=== PATIENT | female | born 1945 | race Caucasian/White ===

== ENCOUNTER 2018-06-24 21:55 | Inpatient (IN) | payer OTHER ==
[~2018-06-24] VITALS: Ht 162.6 cm; Wt 50.8 kg
[2018-06-24] MEDS ORDERED: SYNTHROID88 MCG PO (21:59)
[2018-06-24] MEDS ORDERED: ATORVASTATIN CA20 MG (21:59)
[2018-06-24] MEDS ORDERED: RESTORIL22.5 MG (22:00)
[2018-06-24] MEDS ORDERED: COZAAR25 MG (22:00)
[2018-06-24] MEDS ORDERED: PAXIL20 MG (22:00)
[2018-06-29] MEDS ORDERED: ELIQUIS2.5 MG PO (17:59)
[2018-06-29] MEDS ORDERED: PERCOCET 5-3251 EACH PO (17:59)
[2018-06-29] MEDS ORDERED: DUI500 PO (17:59)
== END 2018-06-29 19:36 | DRG 470 ==
LOC: ER 21:55 → SURH 06-25 12:29
PROVIDERS: Orthopaedic Surgery
PROC: 0MBM0ZZ Excision of Left Hip Bursa and Ligament, Open Approach (ICD-10-PCS; 2018-06-27)
PROC: 0SRS0JZ Replacement of Left Hip Joint, Femoral Surface with Synthetic Substitute, Open Approach (ICD-10-PCS; principal; 2018-06-27 16:00)
DX: S72.012A Unspecified intracapsular fracture of left femur, initial encounter for closed fracture (principal); F23 Brief psychotic disorder; W18.39XA Other fall on same level, initial encounter; Y93.G3 Activity, cooking and baking; Y92.090 Kitchen in other non-institutional residence as the place of occurrence of the external cause; Y99.8 Other external cause status; M81.0 Age-related osteoporosis without current pathological fracture; M16.12 Unilateral primary osteoarthritis, left hip; I10 Essential (primary) hypertension; E03.8 Other specified hypothyroidism; F31.76 Bipolar disorder, in full remission, most recent episode depressed

== ENCOUNTER 2020-06-12 09:20 | Outpatient (CLI) | payer OTHER ==
[~2020-06-12 09:20] MED LIST: ATORVASTATIN CA20 MG; COZAAR25 MG; DUI500 PO; ELIQUIS2.5 MG PO; PAXIL20 MG; PERCOCET 5-3251 EACH PO; RESTORIL22.5 MG; SYNTHROID88 MCG PO
== END 2020-06-12 09:28 | disposition home or self-care (01) ==
LOC: MAMO-SONO 09:20
PROVIDERS: ATTEND Internal Medicine Cardiovascular Disease
DX: Z12.31 Encounter for screening mammogram for malignant neoplasm of breast (principal); N64.59 Other signs and symptoms in breast

== ENCOUNTER 2020-11-30 15:20 | Inpatient (IN) | payer OTHER ==
[~2020-11-30] VITALS: Ht 121.9 cm; Wt 5.0 kg
[2020-11-30] MEDS ORDERED: CHILDREN'S ASPI81 MG PO (15:31)
[2020-11-30] MEDS ORDERED: PLAVIX75 MG PO (15:32)
[2020-11-30] MEDS ORDERED: TOPROL XL50 M1 PO (15:32)
[2020-11-30] MEDS ORDERED: HYDROCHLOROTHIA25 MG PO (15:32)
[2020-11-30] MEDS ORDERED: DOXAZOSIN MESYLA2 MG PO (15:33)
[2020-11-30] MEDS ORDERED: PROCARDIA XL90 MG PO (15:33)
== END 2020-12-04 19:50 | disposition home or self-care (01) | DRG 866 ==
LOC: ER 15:20 → SEC-K 12-01 06:05 → MEDJ 12-01 06:05
PROVIDERS: ADMIT Internal Medicine Cardiovascular Disease; ATTEND Internal Medicine Cardiovascular Disease
PROC: 8E0ZXY6 Isolation (ICD-10-PCS; principal; 2020-12-01)
DX: J10.89 Influenza due to other identified influenza virus with other manifestations (principal); N39.0 Urinary tract infection, site not specified; E87.1 Hypo-osmolality and hyponatremia; E86.0 Dehydration; B34.9 Viral infection, unspecified; I11.9 Hypertensive heart disease without heart failure; I25.10 Atherosclerotic heart disease of native coronary artery without angina pectoris; E78.5 Hyperlipidemia, unspecified; M32.9 Systemic lupus erythematosus, unspecified; Z86.73 Personal history of transient ischemic attack (TIA), and cerebral infarction without residual deficits; Z20.822 Contact with and (suspected) exposure to COVID-19

== ENCOUNTER 2022-08-04 07:51 | Outpatient (CLI) | payer OTHER ==
[~2022-08-04 07:51] MED LIST changes: +CHILDREN'S ASPI81 MG PO; +DOXAZOSIN MESYLA2 MG PO; +HYDROCHLOROTHIA25 MG PO; +PLAVIX75 MG PO; +PROCARDIA XL90 MG PO; +TOPROL XL50 M1 PO
== END 2022-08-04 07:53 | disposition home or self-care (01) ==
LOC: MRI 07:51
PROVIDERS: ATTEND Psychiatry & Neurology Clinical Neurophysiology
DX: I63.30 Cerebral infarction due to thrombosis of unspecified cerebral artery (principal)
CPT/HCPCS: 70551

== ENCOUNTER 2024-09-11 07:55 | Outpatient (CLI) | payer OTHER | END 2024-09-11 07:58 | disposition home or self-care (01) | LOC: MAMO-SONO 07:55 | PROVIDERS: ATTEND Internal Medicine Cardiovascular Disease | DX: N60.11 Diffuse cystic mastopathy of right breast (principal); N60.12 Diffuse cystic mastopathy of left breast ==

== ENCOUNTER 2025-01-31 09:32 | Outpatient (CLI) | payer OTHER | END 2025-01-31 09:36 | disposition home or self-care (01) | LOC: RAD 09:32 | PROVIDERS: ATTEND Ophthalmology | DX: Z01.811 Encounter for preprocedural respiratory examination (principal) ==

== ENCOUNTER → 2025-01-31 09:56 | Outpatient (CLI) | payer OTHER | END | disposition home or self-care (01) | LOC: EKG 09:56 | PROVIDERS: ATTEND Ophthalmology | DX: I10 Essential (primary) hypertension (principal) ==

== ENCOUNTER 2025-07-04 09:29 | Inpatient (IN) | payer OTHER ==
[~2025-07-04] VITALS: Ht 162.6 cm; Wt 56.2 kg
[2025-07-04] MEDS ORDERED: [UNRECOGNIZED DRUG - OTHER] (09:39)
[2025-07-04] MEDS ORDERED: TENORMIN25 MG PO (09:39)
[2025-07-04] MEDS ORDERED: ATORVASTATIN CA10 MG PO (09:40)
--- NOTE | 2025-07-04 09:42 | NUR ---
PTE ALERTA Y ORIENTADA X3 REFIERE VENIR POR PROBLEMAS URINARIOS Y REFERIDOS DE DR. SWEENEY. SE KARI S/V Y SE UBICA EN OFICINA MEDICA.
[2025-07-04] MEDS ORDERED: 0.9 % SODIUM CHLORIDE 1,000 ML IV STA (09:59)
[2025-07-04] MEDS ORDERED: ONDANSETRON HCL 2 MG/ML VIAL IV STA (09:59)
[2025-07-04] MEDS ORDERED: FAMOTIDINE/PF 20 MG/2 ML VIAL IV STA (09:59)
[2025-07-04] MEDS ORDERED: levoFLOXacin IN DEXTROSE 5 % 5 MG/ML PIGGYBAG IV SCH (10:00)
[2025-07-04] MEDS ORDERED: KETOROLAC TROMETHAMINE 15 MG VIAL IU ONE (10:00)
[2025-07-04] MEDS ORDERED: ONDANSETRON HCL 2 MG/ML VIAL ONE (10:22)
[2025-07-04] MEDS ORDERED: KETOROLAC TROMETHAMINE 30 MG VIAL ONE (10:22)
[2025-07-04] MEDS ORDERED: FAMOTIDINE/PF 20 MG/2 ML VIAL ONE (10:23)
[2025-07-04 11:14] LABS: BASO % 0.4 % (0.1-1.2); EOS # 0.07 (0.04-0.54); EOS % 0.5 % (0.7-7.0); LYMPH # 0.85 (1.18-3.74); LYMPH % 6.1 % (19.3-53.1); MEAN PLATELET VOLUME 8.80 fl (9.4-12.4); MONO # 0.55 (0.24-0.82); MONO % 4.0 % (4.7-12.5); NEUT # 12.29 (1.56-6.13); NEUT % 88.4 % (34.0-71.1); RED CELL DISTRIBUTION WIDTH 12.5 % (11.6-14.4)
[2025-07-04 11:20] LABS: ERYTHROCYTE SEDIMENTATION RATE 39 mm/hr (0-30)
--- NOTE | 2025-07-04 11:26 | NUR ---
PACIENTE EN DESCANSO EN CAMA SE EDUCA SOBRE TRATAMIENTOS A SEGUIR. LA MISMA SE LE KARI MUESTRAS DE LABORATORIO, SE COMIENZA ACCESO VENOSO Y SE ADMINISTRAN MEDICAMENTO CON DEBIDAS MEDIDAS ASEPTICAS. LA MISMA SE MANTIENE EN DESCANSO EN ESPERA DE RESULTADOS Y RE-EVALUAVION.
[2025-07-04 11:50] LABS: BUN CREA RATIO 11.0 (7.0-25.0); CREATININE SERUM 0.81 mg/dL (0.55-1.02); GFR 68.38; GLUCOSE FASTING 121.0 mg/dL (65-100); INR 0.98; OSMOLALITY SERUM 257.0 MOSM/KG (275-295)
[2025-07-04 11:58] LABS: URINE EPITHELIAL CELLS 21.5 uL (0.0-38.8); URINE RBC 101.0 uL (0.0-20.8); URINE WBC 7.8 uL (0.0-23.2)
[2025-07-04 12:05] LABS: URINE BILIRRUBIN NEGATIVE (NEGATIVE); URINE BLOOD NEGATIVE; URINE KETONE NEGATIVE (NEGATIVE); URINE LEUKOCYTE TRACE; URINE NITRATE POSITIVE; URINE PROTEIN TRACE (NEGATIVE); URINE UROBILINOGEN 1.0 E.U./dl
[2025-07-04 12:08] LABS: URINE BACTERIA > 9821.5 uL (0.0-1933); URINE CAST 0.00 uL (0.0-1.40)
[2025-07-04 12:09] LABS: URINE APPEARANCE CLEAR; URINE COLOR YELLOW; URINE GLUCOSE 100 MG/DL (NEGATIVE)
[2025-07-04] MEDS ORDERED: ACETAMINOPHEN 325 MG TABLET PO PRN (14:45)
[2025-07-04] MEDS ORDERED: PIPERACILLIN/TAZOBACTAM SODIUM 3.375 GM VIAL IV ONE (15:45)
[2025-07-04] MEDS ORDERED: 0.9 % SODIUM CHLORIDE 1,000 ML IV SCH (16:15)
[2025-07-04] MEDS ORDERED: ATORVASTATIN CALCIUM 10 MG TABLET PO SCH (17:00)
[2025-07-04] MEDS ORDERED: PIPERACILLIN/TAZOBACTAM SODIUM 3.375 GM in 0.9 % SODIUM CHLORIDE 100 ML IV SCH (18:00)
[2025-07-04] MEDS ORDERED: ACETAMINOPHEN 500 MG GEL..CAP PO PRN (19:15)
[2025-07-04 20:04] VITALS: BP 150/85; O2SAT 95
[2025-07-04] MEDS ORDERED: GABAPENTIN 300 MG CAPSULE PO SCH (21:00)
[2025-07-04] MEDS ORDERED: TEMAZEPAM 15 MG CAPSULE PO SCH (21:00)
[2025-07-05 03:41] VITALS: BP 142/80; O2SAT 97
[2025-07-05] MEDS ORDERED: LEVOTHYROXINE SODIUM 100 MCG TABLET PO SCH (06:00)
[2025-07-05] MEDS ORDERED: PANTOPRAZOLE SODIUM 40 MG/VIAL VIAL IV SCH (09:00)
[2025-07-05] MEDS ORDERED: NIFEDIPINE 30 MG TAB.SA.OSM PO SCH (09:00)
[2025-07-05] MEDS ORDERED: levoFLOXacin IN DEXTROSE 5 % 5 MG/ML PIGGYBAG IV SCH (09:00)
[2025-07-05] MEDS ORDERED: CLOPIDOGREL BISULFATE 75 MG TABLET PO SCH ×2 (09:00)
[2025-07-05] MEDS ORDERED: PREDNISONE 10 MG TABLET PO SCH (09:00)
[2025-07-05] MEDS ORDERED: LOSARTAN POTASSIUM 100 MG TABLET PO SCH (09:00)
[2025-07-05] MEDS ORDERED: LOSARTAN POTASSIUM 25 MG TABLET PO SCH (09:00)
[2025-07-05] MEDS ORDERED: ATENOLOL 25 MG TABLET PO SCH (09:00)
[2025-07-05 09:52] VITALS: BP 146/51; O2SAT 99
[2025-07-05 15:01] LABS: BUN CREA RATIO 10.0 (7.0-25.0); CREATININE SERUM 0.71 mg/dL (0.55-1.02); GFR 79.61; GLUCOSE FASTING 101.0 mg/dL (65-100); OSMOLALITY SERUM 274.0 MOSM/KG (275-295)
[2025-07-05] MEDS ORDERED: PIPERACILLIN/TAZOBACTAM SODIUM 3.375 GM VIAL IV ONE (16:14)
[2025-07-05] MEDS ORDERED: ATORVASTATIN CALCIUM 40 MG TABLET PO SCH (17:00)
[2025-07-05] MEDS ORDERED: LACTOBACILLUS ACIDOPHILUS 1 CAP CAP PO SCH (17:00)
[2025-07-05 20:14] VITALS: BP 147/66; O2SAT 95
[2025-07-06 03:16] VITALS: BP 136/68; O2SAT 92
[2025-07-06 08:34] LABS: BASO % 0.6 % (0.1-1.2); EOS # 0.15 (0.04-0.54); EOS % 2.2 % (0.7-7.0); LYMPH # 1.52 (1.18-3.74); LYMPH % 22.0 % (19.3-53.1); MEAN PLATELET VOLUME 9.00 fl (9.4-12.4); MONO # 0.75 (0.24-0.82); MONO % 10.8 % (4.7-12.5); NEUT # 4.42 (1.56-6.13); NEUT % 63.8 % (34.0-71.1); RED CELL DISTRIBUTION WIDTH 12.9 % (11.6-14.4)
[2025-07-06 11:12] VITALS: BP 118/75; O2SAT 98
[2025-07-06] MEDS ORDERED: PIPERACILLIN/TAZOBACTAM SODIUM 3.375 GM VIAL IV ONE (15:13)
[2025-07-06 20:06] VITALS: BP 128/69; O2SAT 96
[2025-07-07 03:49] VITALS: BP 136/60; O2SAT 94
[2025-07-07 10:19] VITALS: BP 147/83; O2SAT 97
[2025-07-07 19:13] VITALS: BP 135/63; O2SAT 96
[2025-07-08 02:38] VITALS: BP 144/83; O2SAT 94
[2025-07-08] MEDS ORDERED: PANTOPRAZOLE SODIUM 40 MG TABLET.DR PO SCH (09:00)
[2025-07-08 09:12] VITALS: BP 127/82; O2SAT 94
[2025-07-08 17:54] LABS: URINE APPEARANCE Clear; URINE BILIRRUBIN Negative (NEGATIVE); URINE BLOOD Negative; URINE COLOR Yellow; URINE GLUCOSE Negative (NEGATIVE); URINE KETONE Negative (NEGATIVE); URINE LEUKOCYTE Negative; URINE NITRATE Negative; URINE PROTEIN Negative (NEGATIVE); URINE UROBILINOGEN 0.2 E.U./dl
[2025-07-08 17:57] LABS: URINE EPITHELIAL CELLS 3.5 uL (0.0-38.8)
[2025-07-08 18:00] LABS: URINE BACTERIA 0 uL (0.0-1933); URINE RBC 0.5 uL (0.0-20.8); URINE WBC 0.6 uL (0.0-23.2)
[2025-07-08 18:01] LABS: URINE CAST 0.00 uL (0.0-1.40)
[2025-07-08 21:44] VITALS: BP 144/79; O2SAT 97
[2025-07-09 03:43] VITALS: BP 128/72; O2SAT 98
[2025-07-09] MEDS ORDERED: SODIUM CL 0.9% 100 ML IV.SOLN IV ONE (04:44)
[2025-07-09 09:57] VITALS: BP 131/86; O2SAT 94
[2025-07-09 18:56] VITALS: BP 127/82
[2025-07-10 03:14] VITALS: BP 123/69; O2SAT 93
[2025-07-10 08:57] VITALS: BP 140/75; O2SAT 94
== END 2025-07-10 19:31 | disposition home or self-care (01) | DRG 690 ==
LOC: ER 09:30 → MEDI 16:25
PROVIDERS: General Practice; Internal Medicine Infectious Disease; ADMIT Internal Medicine; ATTEND Internal Medicine
PROC: B246ZZZ Ultrasonography of Right and Left Heart (ICD-10-PCS; principal; 2025-07-04)
DX: N39.0 Urinary tract infection, site not specified (principal); E87.1 Hypo-osmolality and hyponatremia; B96.1 Klebsiella pneumoniae [K. pneumoniae] as the cause of diseases classified elsewhere; E86.0 Dehydration; E78.49 Other hyperlipidemia; E03.9 Hypothyroidism, unspecified; I10 Essential (primary) hypertension; D72.828 Other elevated white blood cell count